=== PATIENT | male | born 1935 | race Caucasian/White ===

== ENCOUNTER 2018-07-27 09:28 | Emergency (ER) | payer OTHER, MEDICARE ==
[~2018-07-27] VITALS: Ht 177.8 cm; Wt 108.9 kg
[~2018-07-27 09:28] MED LIST: ALLERGY RELIEF10 M5 PO; ALLOPURINOL 30300 M2 PO; APAP650 PO; ASPIRIN325 PO; ASPIRIN81 M2 PO; AUGMENTIN 875875 MG PO; CARVEDILOL12.5 MG PO; COLACE100 MG PO; COLCHICINE 0.60.6 M1 PO; COZAAR 25 MG TA25 M1 PO; CRESTOR20 MG PO; FLAGYL500 MG OR; HYDROCHLOROTH12.5 M1 PO; HYDROCODONE-AP1 EAC6 PO; HYTRIN 5 M5 MG/1 CAP PO; NORCO 5-325 TA1 EACH OR; NORVASC 2.5 MG2.5 MG PO; PLAVIX 75 MG TA75 MG PO; PROSCAR 5MG TABL5 MG PO; RELAFEN750 MG PO; SENOKOT-S1 TA1 OR; SIMVASTATIN40 MG PO; UNKNOWN BP MED
[2018-07-27 10:13] LABS: ABSOLUTE NEUTROPHILS 5.4 thou/uL (1.4-8.2); BASOPHILS 0.9 % (0.0-2.0); EOSINOPHILS 3.3 % (0.0-3.0); HEMATOCRIT 41.3 % (42.0-52.0); HEMOGLOBIN 13.7 gm/dL (14.0-18.0); LYMPHOCYTES 10.6 % (24.0-44.0); MCH 30.3 pg (26.0-34.0); MCHC 33.1 g/dL (28.0-37.0); MCV 91.5 fL (80.0-100.0); MONOCYTES 5.9 % (1.0-8.0); PLATELET COUNT 125 thou/uL (150-400); POLYS 79.3 % (36.0-66.0); RBC 4.51 mil/uL (4.50-6.00); RDW 16.8 % (10.5-14.5); WBC 6.8 thou/uL (4.0-11.0)
[2018-07-27 10:17] LABS: CALCIUM 9.5 mg/dL (8.5-10.1); CREATININE 1.4 mg/dL (0.7-1.3); POTASSIUM 4.2 mmol/L (3.5-5.1)
[2018-07-27] MEDS ORDERED: ASPIRIN600 MG RECTAL (11:35)
[2018-07-27] MEDS ORDERED: AMLODIPINE-OLM1 EAC1 PO (13:02)
[2018-07-27 13:04] VITALS: BP 170/75
--- NOTE | 2018-07-27 15:01 | EKG ---
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 Nurse Lvn: ODILON : 1935 Requested By: Patience Hernandez Order Number: [id number] MD: Darryl Mcallister Measurements Intervals [place] Rate: 72 P: -19 NC: 255 QRS: -48 QRSD: 109 T: 58 QT: 392 QTc: 430 Interpretive Statements Sinus rhythm Prolonged NC interval Incomplete left bundle branch block Inferior infarct, old Compared to ECG 12/18/2015 19:39:44 Electronically Signed On 07-27-2018 15:01:27 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
== END 2018-07-27 15:57 ==
LOC: ER 09:28
PROVIDERS: Emergency Medicine
DX: H54.61 Unqualified visual loss, right eye, normal vision left eye (principal); I10 Essential (primary) hypertension; E78.5 Hyperlipidemia, unspecified; M10.9 Gout, unspecified; I25.10 Atherosclerotic heart disease of native coronary artery without angina pectoris; Z87.891 Personal history of nicotine dependence